=== PATIENT | male | born 1945 | race Caucasian/White ===

== ENCOUNTER 2017-06-25 23:26 | Emergency (ER) | payer MEDICARE ==
[~2017-06-25] VITALS: Ht 182.9 cm; Wt 108.9 kg
[2017-06-25 23:30] VITALS: BP_SYST 143
--- NOTE | 2017-06-25 23:30 | NUR ---
Placed in room 05 . To gown for exam. Side rails up. Care assumed.
--- NOTE | 2017-06-25 23:35 | NUR ---
Patient AAO x4, sitting in bed c/o sudden onset nose bleed x 20 min. Patient states he's taking "2 baby aspirin a day", denies taking any other anti-coagulants. No acute distress noted. Will continue to monitor.
--- NOTE | 2017-06-25 23:40 | NUR ---
Gauze placed in bilateral nostrils to stem blood flow. Patient tolerated well.
--- NOTE | 2017-06-26 01:15 | NUR ---
Patient nose bleeding. MD informed. Patient moved to bed 06.
--- NOTE | 2017-06-26 01:20 | NUR ---
Dr. Ely at bedside re-examining patient.
--- NOTE | 2017-06-26 02:15 | NUR ---
Patient nose bleeding again after removal of rhino-rocket. informed.
--- NOTE | 2017-06-26 02:30 | NUR ---
ER at bedside examining patient.
[2017-06-26 03:58] VITALS: BP_SYST 142
--- NOTE | 2017-06-26 03:58 | NUR ---
Patient given written and verbal discharge instructions and verbalizes understanding. ER MD discussed with patient the results and treatment provided. Patient in stable condition. ID arm band removed. No Rx given. Patient educated on pain management and to follow up with PMD. Pain Scale 0/10. Opportunity for questions provided and answered. Patient discharged with clear instructions by Dr. Ely to go to [facility] immediately for further treatment of epistaxis.
== END 2017-06-26 03:58 | disposition home or self-care (01) ==
LOC: SED 23:26
DX: R04.0 Epistaxis (principal); I10 Essential (primary) hypertension
CPT/HCPCS: 99284